=== PATIENT | female | born 1955 | race Caucasian/White ===

== ENCOUNTER 2021-12-19 09:01 | Outpatient (RCR) | payer MEDICAID, SELFPAY ==
--- NOTE | 2021-12-19 10:39 | REHOPWC ---
SEATING EVALUATION NOTIFICATION This is to notify provider that Rosie Madrid participated in a power mobility device evaluation today. Recommendations were made specific to patient's needs. Seating Assessment documentation has been completed for detailed information on required equipment. Please note that no further care plan will be developed on this account. Thank you for referring this patient to [facility]. Please review, sign, date and return this discharge summary OKSANA. I have been updated about the patient's current status and I agree with discharge from the above service at this time. Referring Physician Date Referring Provider: Amina Henry APRN
== END 2021-12-19 11:56 | disposition home or self-care (01) ==
LOC: ANHOT 09:01
PROVIDERS: PCP Nurse Practitioner Family; Visit Provider Nurse Practitioner Family
DX: I63.9 Cerebral infarction, unspecified (principal); R53.1 Weakness; Z74.09 Other reduced mobility
CPT/HCPCS: 97165

== ENCOUNTER 2022-08-23 14:07 | Emergency (ER) | payer MEDICAID, SELFPAY ==
[2022-08-23 14:15] VITALS: BP 149/48; PULSE 63; RESP 20; TEMP 37; O2SAT 99
--- NOTE | 2022-08-23 16:41 | PC.NURSE ---
Pt is wheeled into ER c/o jaw pain from a cracked tooth on her lower jaw. Pt states the pain has been ongoing for 2 months. Pt states that she has not seen a dentist. Pt states the pain has become more intense and started to have facial swelling to that side.
--- NOTE | 2022-08-23 16:43 | PC.NURSE ---
States she has received hydrocodone for the pain at the assisted living where she resides. States her last dose was at 1000 this morning.
--- NOTE | 2022-08-23 17:13 | ED.DENTAL ---
HPI - Dental/Oral General Chief complaint: Dental/Oral Stated complaint: tooth pain Time Seen by Provider: 08/23/22 16:45 History of Present Illness HPI Narrative: 67-year-old female presenting to the emergency department for evaluation of dental pain. Patient states that the dental pain has been worsening over the last few days. Patient reported some left facial pain. Patient denies any difficulty breathing or swallowing. Patient does have prior history of dental caries. Patient has not had follow-up with a dentist in approximately 2 years. Related Data Allergies Allergy/AdvReac Type Severity Reaction Status Date / Time No Known Allergies Allergy Verified 08/23/22 16:47 Review of Systems Review of Systems: All systems reviewed & are unremarkable except as noted in HPI and below Exam Narrative: APPEARANCE: Well appearing, no pain, no distress, well-nourished. HEAD: normocephalic, atraumatic. EYES: PERRLA/EOMI, conjunctivae clear. NOSE: Normal no drainage Mouth: Dental caries with no abscess amenable to drainage. NECK: Supple. No adenopathy, no masses. RESPIRATORY: Airway patent, respirations nonlabored. Clear to auscultation bilaterally, no rales, rhonchi, wheezing. CARDIOVASCULAR: Regular rate and rhythm without murmurs rubs or gallops. ABDOMINAL: Soft, nontender, nondistended, normal bowel sounds MUSCULOSKELETAL: Moves all extremities. Strength/ROM intact, No edema, No calf tenderness. NEURO: Alert. Cranial nerves II through XII intact. Grossly intact SKIN: Warm, dry. Normal Color Course Course Emergency Course: 67-year-old female presented emergency department for evaluation of dental pain with associated left facial swelling. Patient was started on Augmentin in the emergency department and discharged on Augmentin. Patient was cleared of close follow-up with her dentist. All questions and concerns were addressed and patient was well-appearing at time of discharge. Vital Signs Vital signs: Vital Signs Temperature 98.6 F 08/23/22 14:15 Pulse Rate 63 08/23/22 14:15 Respiratory Rate 20 08/23/22 14:15 Blood Pressure 149/48 H 08/23/22 14:15 Pulse Oximetry 99 08/23/22 14:15 Oxygen Delivery Room Air 08/23/22 14:15 Temperature 98.6 F 08/23/22 14:15 Pulse Rate 60 08/23/22 18:00 Respiratory Rate 18 08/23/22 18:00 Blood Pressure 152/59 H 08/23/22 18:00 Pulse Oximetry 100 08/23/22 18:00 Oxygen Delivery Room Air 08/23/22 14:15 Discharge Plan Discharge Clinical Impression: Toothache Patient Disposition: Home, Self-Care Condition: Stable Instructions: Antibiotic Form, Toothache (ED) Additional Instructions: Antibiotic as directed until completed. Have close follow-up with your dentist. If you have any worsening symptoms please call or return to the emergency department. Prescriptions: New amoxicillin-pot clavulanate 875-125 mg tablet 1 tablet PO Q12H Qty: 14 0RF Follow-up/Referrals: MANA,JUNIE BUSH [Primary Care Provider] -
[2022-08-23] MEDS: AMOXICILLIN/CLAVULANATE K 875-125 MG TAB 1 TABLET PO (17:28)
--- NOTE | 2022-08-23 17:44 | PC.NURSE ---
RN calls [facility] in [place] to get some background on pt. Pt would not qualify for EMS and ER can offer pt a cab voucher. Constanza at the [facility] states that a [employer] would meet a cab at the door with a wheelchair to assist pt back to her room.
[2022-08-23 18:00] VITALS: BP 152/59; PULSE 60; RESP 18; O2SAT 100
--- NOTE | 2022-08-23 18:05 | PCCCNOTE ---
ER request cab voucher. No other transportation available. Voucher for ER to [facility] in [place]
== END 2022-08-23 18:14 | disposition home or self-care (01) ==
PROVIDERS: Emergency Provider Emergency Medicine; PCP Nurse Practitioner Family
DX: K08.89 Other specified disorders of teeth and supporting structures (principal)
CPT/HCPCS: 99283; A9270

== ENCOUNTER 2022-10-06 12:28 | Emergency (ER) | payer MEDICAID, SELFPAY ==
[2022-10-06 12:31] VITALS: BP 166/44; PULSE 66; RESP 18; TEMP 36.9; O2SAT 99
[2022-10-06 13:30] VITALS: BP 136/78; PULSE 84; RESP 16; TEMP 36.8; O2SAT 98
--- NOTE | 2022-10-06 13:39 | ED.GENADULT ---
HPI - General Adult General Chief complaint: Dental/Oral Stated complaint: dental pain Time Seen by Provider: 10/06/22 13:04 History of Present Illness HPI narrative: Rosie Madrid is a 67 y/o female who presents from assisted living with complaints of pain to her tongue for 2 weeks. She denies any trauma/ biting her tongue / or having symptoms like this in the past. She denies dental pain. Denies difficulty swallowing or any throat pain. Denies fever/ chills. Related Data Allergies Allergy/AdvReac Type Severity Reaction Status Date / Time No Known Allergies Allergy Verified 10/06/22 12:37 Review of Systems Review of Systems: CONSTITUTIONAL: Denies fever, chills, or sweats. EYES: Denies visual changes, redness, or discharge. ENT: Denies rhinorrhea, congestion, sore throat, or otalgia complains of pain to her tongue more on the left lateral aspect of the tongue CARDIOVASCULAR: Denies chest pain, palpitations, or edema. RESPIRATORY: Denies cough or dyspnea. GASTROINTESTINAL: Denies abdominal pain, nausea, vomiting, or diarrhea. GENITOURINARY: Denies dysuria or hematuria. SKIN: Denies rash or itching. MUSCULOSKELETAL: Denies back pain, joint pain, or myalgia. NEUROLOGIC: Denies headache, numbness, dizziness, or weakness. PSYCHIATRIC: Denies anxiety or depression. Exam Narrative: GENERAL: Well-appearing, well-nourished, and in no acute distress. HEAD: Normocephalic, atraumatic. EYES: PERRLA and EOMI. ENT: Nares clear, no rhinorrhea or epistaxis. Mucous membranes moist. Oropharynx without tonsillar hypertrophy Left latera tongue ulceration with what appears to be possible drainage from area of pain and inflammation NECK: Supple. No adenopathy or masses. No carotid bruits or JVD CHEST: Clear to auscultation. No respiratory distress. No wheezes rales or rhonchi HEART: Regular rate and rhythm. No murmur heard. Normal peripheral pulses. ABDOMEN: Soft, nontender, nondistended, normal active bowel sounds. EXTREMITIES: Normal range of motion. No edema. SKIN: Warm, dry, no rash. NEURO: No focal deficits. Alert and oriented x3. PSYCH: Normal mood and affect. Course Vital Signs Vital signs: Vital Signs Temperature 36.9 C 10/06/22 12:31 Pulse Rate 66 10/06/22 12:31 Respiratory Rate 18 10/06/22 12:31 Blood Pressure 166/44 H 10/06/22 12:31 Pulse Oximetry 99 10/06/22 12:31 Oxygen Delivery Room Air 10/06/22 12:31 Temperature 36.8 C 10/06/22 13:30 Pulse Rate 84 10/06/22 13:30 Respiratory Rate 16 10/06/22 13:30 Blood Pressure 136/78 10/06/22 13:30 Pulse Oximetry 98 10/06/22 13:30 Oxygen Delivery Room Air 10/06/22 12:31 Vitals reviewed by me. Medical Decision Making MDM Narrative Medical decision making narrative: Airway patent, no airway edema/ erythema noted Left lateral tongue ulceration with erythema/ possible drainage. Patient reports she is able to eat and drink but having a lot of pain doing so due to her tongue Patient denies trauma/injury, reports her pain started 2 weeks ago. No systemic symptoms no fever/chills/abdominal pain Plan to empirically treat her with antibiotics start her on chlorhexidine swish and spit / treat her pain and refer her to ENT for follow up along with her PCP for biopsy Differential Diagnosis Differential Diagnosis: Concern for : tongue infection-abscess/ Oral Squamous cell carcinoma /dental infection / Vital Signs Vital Signs: Vital Signs Temperature 36.9 C 10/06/22 12:31 Pulse Rate 66 10/06/22 12:31 Respiratory Rate 18 10/06/22 12:31 Blood Pressure 166/44 H 10/06/22 12:31 Pulse Oximetry 99 10/06/22 12:31 Oxygen Delivery Room Air 10/06/22 12:31 Temperature 36.8 C 10/06/22 13:30 Pulse Rate 84 10/06/22 13:30 Respiratory Rate 16 10/06/22 13:30 Blood Pressure 136/78 10/06/22 13:30 Pulse Oximetry 98 10/06/22 13:30 Oxygen Delivery Room Air 10/06/22 12:31 Vitals reviewed by me
[2022-10-06] MEDS: CLINDAMYCIN HCL 150 MG CAP 450 MG PO (13:51)
[2022-10-06] MEDS: ACETAMINOPHEN 325 MG TABLET 650 MG PO (13:51)
--- NOTE | 2022-10-06 14:04 | PC.NURSE ---
Report called to [facility]
--- NOTE | 2022-10-06 14:28 | PCCCNOTE ---
ER nurse request cab voucher for pt d/t no other transportation could be located. Cab voucher provided
[2022-10-06 14:33] VITALS: BP 128/68; PULSE 82; RESP 18; TEMP 36.8; O2SAT 96
== END 2022-10-06 14:39 | disposition home or self-care (01) ==
PROVIDERS: Emergency Provider Nurse Practitioner Family; PCP Nurse Practitioner Family
DX: K14.0 Glossitis (principal)
CPT/HCPCS: 87070; 87205; 99283; A4248; A9270

== ENCOUNTER 2022-11-18 09:39 | Emergency (ER) | payer MEDICAID, SELFPAY ==
[2022-11-18 09:40] VITALS: BP 152/69; PULSE 68; RESP 20; TEMP 36.7; O2SAT 100
--- NOTE | 2022-11-18 10:38 | ED.GENADULT ---
HPI - General Adult General Chief complaint: Unspecified Stated complaint: oral sores Time Seen by Provider: 11/18/22 09:50 Source: patient Mode of arrival: ambulatory Limitations: no limitations History of Present Illness HPI narrative: 67-year-old female Represents today for complaints of oral lesions. Patient seen last month for the same concern and never followed up. Patient does not know her medications but says she does not take any inhalers. She is from [place]. She has been having this issue for 5 weeks but has never followed up with anybody other than the emergency department. Patient does endorse pain. Denies fevers, body aches, chills, any recent illnesses. Related Data Allergies Allergy/AdvReac Type Severity Reaction Status Date / Time No Known Allergies Allergy Verified 11/18/22 09:46 Review of Systems Review of Systems: All systems reviewed & are unremarkable except as noted in HPI and below ENT: Reports as per HPI Cardiovascular: Cardiovascular: Reports as per HPI Respiratory: Respiratory: Reports as per HPI Gastrointestinal: Gastrointestinal: Reports as per HPI Musculoskeletal: Musculoskeletal: Reports as per HPI Integumentary/Breasts: Skin/Breast: Reports as per HPI Neurologic: Reports as per HPI Psychiatric: Psychiatric: Reports as per HPI Exam Const: General: cooperative, healthy appearing, comfortable, no acute distress and well developed Orientation/consciousness: patient oriented x3 HENMT: Head: normal to inspection Mouth: Yes Normal oral and palatal mucosa present and Yes tongue abnormal (White patches noted to tongue but not on the buccal mucosa or posterior pha) with lesion noted (Ulcers to side of tongue mostly left) ulcer and other Mouth/tongue images: 1. Multiple lesions noted Eyes: General: appearance normal, both eyes and all related structures Resp: Effort & Inspection: normal respiratory effort and able to speak in complete sentences Auscultation: clear to auscultation bilaterally Cardio: Rate: regular rate Rhythm: regular rhythm Heart sounds: Murmur heart sound present systolic II/ Neuro: General: patient oriented x3 Course Vital Signs Vital signs: Vital Signs Temperature 98.1 F 11/18/22 09:40 Pulse Rate 68 11/18/22 09:40 Respiratory Rate 20 11/18/22 09:40 Blood Pressure 152/69 H 11/18/22 09:40 Pulse Oximetry 100 11/18/22 09:40 Temperature 98.1 F 11/18/22 09:40 Pulse Rate 62 11/18/22 10:40 Respiratory Rate 18 11/18/22 10:40 Blood Pressure 131/57 L 11/18/22 10:40 Pulse Oximetry 97 11/18/22 10:40 Medical Decision Making MDM Narrative Medical decision making narrative: 67-year-old female HPI as noted. Differentials as noted below. This is a chronic issue that has been going on for over a month. Denies fevers, body aches, chills. We will treat for thrush and use Magic mouthwash for pain and need for follow-up with primary care provider was emphasized. Differential Diagnosis Differential Diagnosis: Oral thrush, oral ulcers, trauma, Medical Records Medical records reviewed: Yes I reviewed the external patient's medical records. Vital Signs Vital Signs: Vital Signs Temperature 98.1 F 11/18/22 09:40 Pulse Rate 68 11/18/22 09:40 Respiratory Rate 20 11/18/22 09:40 Blood Pressure 152/69 H 11/18/22 09:40 Pulse Oximetry 100 11/18/22 09:40 Temperature 98.1 F 11/18/22 09:40 Pulse Rate 62 11/18/22 10:40 Respiratory Rate 18 11/18/22 10:40 Blood Pressure 131/57 L 11/18/22 10:40 Pulse Oximetry 97 11/18/22 10:40 Discharge Plan Discharge Clinical Impression: Oral ulceration Patient Disposition: Home, Self-Care Condition: Stable Instructions: Antibiotic Form Additional Instructions: Please use the medications as prescribed. It is very important that you follow up with your primary care doctor for this chronic issue. Prescriptions: New Magic Mouthwa
[2022-11-18 10:40] VITALS: BP 131/57; PULSE 62; RESP 18; O2SAT 97
== END 2022-11-18 10:46 | disposition home or self-care (01) ==
PROVIDERS: Emergency Provider Nurse Practitioner Family; PCP Nurse Practitioner Family
DX: K12.1 Other forms of stomatitis (principal)
CPT/HCPCS: 99283

== ENCOUNTER 2023-01-24 03:55 | Emergency (ER) | payer MEDICAID, SELFPAY ==
[2023-01-24 03:55] VITALS: BP 95/68; PULSE 106; RESP 25; TEMP 35.9; O2SAT 74
--- NOTE | 2023-01-24 04:04 | ED.GENADULT ---
HPI - General Adult General Chief complaint: Shortness of Breath/Dyspnea Stated complaint: difficulty breathing Time Seen by Provider: 01/24/23 03:57 History of Present Illness HPI narrative: Patient 67-year-old female who presents the emergency department with chief complaint of respiratory distress. The patient has history of laryngeal cancer and is currently at a local fdc for rehab and is DNR comfort measures only EMS was called tonight after the patient was having severe shortness of breath and was minimally responsive the patient was found to have a saturation in the 70s and had diffuse crackles in her lungs. Related Data Home Medications Medication Instructions Recorded Confirmed acetaminophen 325 mg tablet 325 mg PO Q4H PRN 11/22/22 11/22/22 amlodipine 5 mg tablet 5 mg PO DAILY 11/22/22 11/22/22 aspirin 81 mg chewable tablet 81 mg PO DAILY 11/22/22 11/22/22 atorvastatin 40 mg tablet 40 mg PO DAILY 11/22/22 11/22/22 citalopram 20 mg tablet 20 mg PO DAILY 11/22/22 11/22/22 ergocalciferol (vitamin D2) 1,250 1,250 mcg PO WEEKLY 11/22/22 11/22/22 mcg (50,000 unit) capsule (Vitamin D2) hydrocodone 5 mg-acetaminophen 325 1 tablet PO Q6H PRN 11/22/22 11/22/22 mg tablet sitagliptin phosphate 25 mg tablet 25 mg PO DAILY 11/22/22 11/22/22 (Januvia) trazodone 50 mg tablet 25 mg PO QHS 11/22/22 11/22/22 Allergies Allergy/AdvReac Type Severity Reaction Status Date / Time No Known Allergies Allergy Verified 11/22/22 10:57 Review of Systems Review of Systems: ROS unobtainable: Yes unobtainable due to medical condition and unobtainable due to mental status PMFSH Past Medical History Medical History FH: HTN (hypertension) Type 2 diabetes mellitus without complications Vitamin D2 deficiency Social History Social History Smoking status: Smoker, status unknown Exam Narrative: GENERAL: Unresponsive and mild respiratory distress HEAD: Normocephalic, atraumatic. EYES: PERRLA and EOMI. ENT: Nares clear, no rhinorrhea or epistaxis. Mucous membranes dry NECK: Supple. CHEST: Coarse breath sounds bilaterally. Mild respiratory distress. HEART: Regular rate and rhythm. No murmur heard. Normal peripheral pulses. ABDOMEN: Soft, nontender, nondistended, normal active bowel sounds. EXTREMITIES: Normal range of motion. No edema. SKIN: Cool, dry, no rash. NEURO: No focal deficits. Opens eyes spontaneously mumbles incoherently. PSYCH: Unable to obtain. Course Vital Signs Vital signs: Vital Signs Temperature 35.9 C L 01/24/23 03:55 Pulse Rate 106 H 01/24/23 03:55 Respiratory Rate 25 H 01/24/23 03:55 Blood Pressure 95/68 L 01/24/23 03:55 Pulse Oximetry 74 L 01/24/23 03:55 Oxygen Delivery Non-Rebreather Mask 01/24/23 03:55 Oxygen Flow Rate 15 01/24/23 03:55 Temperature 35.9 C L 01/24/23 03:55 Pulse Rate 100 01/24/23 04:16 Respiratory Rate 27 H 01/24/23 04:16 Blood Pressure 60/39 L 01/24/23 04:16 Pulse Oximetry 72 L 01/24/23 04:20 Oxygen Delivery Non-Rebreather Mask 01/24/23 04:20 Oxygen Flow Rate 15 01/24/23 04:20 Medical Decision Making [facility] Narrative Medical decision making narrative: Differential diagnosis includes respiratory failure, CHF, pulmonary embolism The patient has a documented DNR with comfort measures only with exclusions for assisted ventilation the patient was brought in being bagged valve assisted by EMS. Due to the patient's comfort measures only DNR status the patient was switched to a nonrebreather and comfort measures were initiated Attempts were made to contact the fdc as we receive no report from the fdc and the patient's next of kin notification in the paperwork that was sent with her the fdc would not answer phone calls. The patient was given morphine and Ativan to allow for comfort
[2023-01-24] MEDS: MORPHINE SULFATE (*CRX) 2 MG/ML INJ IV PUSH (04:11)
[2023-01-24 04:12] VITALS: PULSE 105; RESP 26; O2SAT 72
[2023-01-24] MEDS: LORazepam INJ (*CRX) 2 MG/ML VIAL 1 MG IV PUSH (04:12)
[2023-01-24 04:15] VITALS: PULSE 103; RESP 27; O2SAT 72
[2023-01-24 04:16] VITALS: BP 60/39; PULSE 100; RESP 27; O2SAT 71
[2023-01-24 04:20] VITALS: O2SAT 72
--- NOTE | 2023-01-24 04:27 | PC.NURSE ---
This Rn attempted to call [facility] regarding pt and pt contacts two times with no answer. No option to leave voicemail.
--- NOTE | 2023-01-24 04:55 | PC.NURSE ---
Darien GIBSON to call shell molding roller blast operator at this time.
--- NOTE | 2023-01-24 13:01 | PCCCNOTE ---
Call received from ED stating they have a pt that this am. She came from [facility] without any information regarding family or POA or burial/ plans. Call placed to [facility] and spoke with Briseyda and the social media marketing analyst. Neither of them were aware of any additional information nor had any paperwork. The only information they have is that Elly Guillaume is a friend and had her phone #. Pt came to them form [facility]. Call placed to [facility] and they had no information either. Call placed to Elly and she stated pt had no plans and was in denial. She did have the pt's parents names, Driss Matthew Clutts and Malini Ahn Clutts, and that they were buried in [place]. Elly did not have any plans on helping make decisions about what to do with pt but, she is a cosigner on pt's savings account, which has very little in it, and is willing to sign it over for whatever is needed for her. Call placed to coal unloader's office and spoke with Ike. Informed him of the situation and he stated he'll have to do some investigating and call us back about what to do.
== END 2023-01-24 06:23 | disposition expired ==
PROVIDERS: Emergency Provider Emergency Medicine
DX: J96.90 Respiratory failure, unspecified, unspecified whether with hypoxia or hypercapnia (principal); C32.9 Malignant neoplasm of larynx, unspecified; E11.9 Type 2 diabetes mellitus without complications; E55.9 Vitamin D deficiency, unspecified; Z66 Do not resuscitate; Z79.82 Long term (current) use of aspirin; Z79.84 Long term (current) use of oral hypoglycemic drugs
CPT/HCPCS: 96374; 96375; 99284; J2060; J2270